=== PATIENT | female | born 1985 | race Caucasian/White ===

== ENCOUNTER → 2019-07-15 07:42 | Outpatient (CLI) | payer BC, SELFPAY ==
--- NOTE | ~2019-07-15 | US_ITS ---
EXAMINATION: US OB >= 14 weeks Fetus DATE: 07/15/2019 08:58 INDICATION: Encounter for screening, anatomy. TECHNIQUE: Real-time ultrasound of the pelvis was performed. COMPARISON: None. FINDINGS: There is a single living fetus in vertex presentation. The placenta is posterior, 5.3 cm from the ce rvix. heart rate is 151 beats per minute (bpm). The amniotic fluid index is 15.2 cm, which is n ormal. The following biometric data were obtained: Biparietal diameter (BPD): 4.6 cm; head circumference (HC): 17.5 cm; abdominal circumference (AC): 14 .0 cm; femur length (FL): 3.1 cm. These measurements are concordant. Estimated weight is 299 g +/- 45 g, which correlates with 22nd percentile when 12/02/19 is used as estimated date of delivery. As single measurements, these parameters are each equal to the following estimated gestational ages w ith ranges of +/- 2 standard deviations: BPD: 19 weeks 6 days (18 weeks 1 days - 21 weeks 4 days). HC: 20 weeks 0 days (18 weeks 4 days - 21 weeks 3 days). AC: 19 weeks 3 days (17 weeks 2 days - 21 weeks 3 days). FL: 19 weeks 4 days (17 weeks 6 days - 21 weeks 3 days). estimated gestational age based solely on measurements from this exam is 19 weeks 5 days +/- 1 weeks 3 days. The cerebral ventricles, cerebellum, cisterna magna, nuchal fold, lip, and visualized portions of the spine are normal. The heart is normal. The diaphragm, stomach, kidneys, and bladder are normal. Ther e are two umbilical arteries to yield a 3-vessel cord. The cord insertion is normal. IMPRESSION: 1. Single living fetus in vertex presentation. 2. Estimated weight is 299 g +/- 45 g, which correlates with 22nd percentile when 12/02/19 is u sed as estimated date of delivery. 3. Normal anatomic survey. Reviewed, dictated and finalized at location A. [facility] IMPRESSION: 1. Single living fetus in vertex presentation. 2. Estimated weight is 299 g +/- 45 g, which correlates with 22nd percen tile when 12/02/19 is used as estimated date of delivery. 3. Normal anatomic survey.
== END ==
PROVIDERS: PCP Pediatrics; Visit Provider Obstetrics & Gynecology
DX: Z36.9 Encounter for antenatal screening, unspecified (principal); Z3A.19 19 weeks gestation of pregnancy
CPT/HCPCS: 76805